=== PATIENT | male | born 1990 | race Two or more races ===

== ENCOUNTER 2019-01-09 10:36 | Emergency (ER) | payer OTHER ==
[~2019-01-09] VITALS: Ht 167.6 cm; Wt 65.8 kg
[2019-01-09 10:54] VITALS: BP 121/82
[2019-01-09] MEDS ORDERED: HYDROcodone-ACET 10/325MG TAB PO ONE (11:15)
[2019-01-09] MEDS ORDERED: TETANUS-DIPTH-ACEL PERTUSSIS 0.5ML SYRG IM ONE (11:15)
[2019-01-09] MEDS ORDERED: cefTRIAXone SOD 1,000 MG VL IM ONE (11:15)
[2019-01-09] MEDS ORDERED: LIDOCAINE 1% HCL (LOCAL ANESTH.) INJ 20ML MDV IJ ONE (11:30)
[2019-01-09] MEDS ORDERED: BACITRACIN TOP OINT 1 UD PKG TOP ONE (12:45)
== END 2019-01-09 13:11 | disposition home or self-care (01) ==
LOC: ER 10:42
DX: S62.522B Displaced fracture of distal phalanx of left thumb, initial encounter for open fracture (principal); W23.0XXA Caught, crushed, jammed, or pinched between moving objects, initial encounter; Y93.89 Activity, other specified; Y99.8 Other external cause status; Y92.89 Other specified places as the place of occurrence of the external cause
CPT/HCPCS: 12002; 73130; 73140; 90471; 90715; 96372; 99283; J0696; J2001